=== PATIENT | male | born 1980 | race African-American/Black ===

== ENCOUNTER 2016-10-23 16:17 | Emergency (ER) | payer OTHER ==
[~2016-10-23] VITALS: Ht 170.2 cm; Wt 99.0 kg
[~2016-10-23 16:17] MED LIST: CLIN150 PO; Z.0.NO CURRENT MEDS
[2016-10-23 16:18] VITALS: BP 142/73; PULSE 78; RESP 12; TEMP 98.1; O2SAT 98
[2016-10-23] MEDS ORDERED: LEVEMIR SQ (16:31)
[2016-10-23] MEDS ORDERED: NOVOLOGP2 SQ (16:31)
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
--- NOTE | 2016-10-23 17:29 | RADRPT ---
EXAM DATE/TIME: 10/23/2016 16:56 [facility] COMPARISON: No previous studies available for comparison. INDICATIONS : Pain at 1st digit post injury. MEDICAL HISTORY : None. SURGICAL HISTORY : None. ENCOUNTER: Initial ACUITY: 1 day PAIN SCORE: 4/10 LOCATION: Right 1st digit FINDINGS: Three view examination of the right hand demonstrates no soft tissue swelling, dislocation, or fractu re. The carpal bones appear intact. The interphalangeal and metacarpophalangeal joints are intact. Bony mineralization is normal. CONCLUSION: Unremarkable examination of the right hand. Alyssia Conde MD on October 23, 2016 at 17:27 Board Certified Radiologist. This report was verified electronically.
== END 2016-10-23 17:47 | disposition home or self-care (01) ==
LOC: NETRI 16:17
DX: S60.221A Contusion of right hand, initial encounter (principal); E11.9 Type 2 diabetes mellitus without complications; Z79.4 Long term (current) use of insulin; V86.59XA Driver of other special all-terrain or other off-road motor vehicle injured in nontraffic accident, initial encounter; Y93.89 Activity, other specified; Y92.9 Unspecified place or not applicable; Y99.0 Civilian activity done for income or pay
CPT/HCPCS: 73130; 99283

== ENCOUNTER 2016-11-05 21:57 | Emergency (ER) | payer OTHER ==
[~2016-11-05] VITALS: Ht 167.6 cm; Wt 100.0 kg
[~2016-11-05 21:57] MED LIST changes: -CLIN150 PO; +LEVEMIR SQ; +NOVOLOGP2 SQ; -Z.0.NO CURRENT MEDS
[2016-11-05 21:58] VITALS: BP 150/94; PULSE 71; RESP 15; TEMP 97.6; O2SAT 97
[2016-11-05] MEDS ORDERED: TETANUS/DIPHTHERIA TOXOID ADULT 0.5 ML VIAL IM ONE (23:45)
[2016-11-05] MEDS ORDERED: IBUPROFEN 600 MG TAB PO ONE (23:45)
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
--- NOTE | 2016-11-06 00:02 | RADRPT ---
EXAM DATE/TIME: 11/05/2016 23:55 [facility] COMPARISON: No previous studies available for comparison. INDICATIONS : Back pain from a fall. MEDICAL HISTORY : None. SURGICAL HISTORY : None. ENCOUNTER: Initial ACUITY: 1 day PAIN SCORE: 3/10 LOCATION: Bilateral low back FINDINGS: Normal alignment. Vertebral body heights are preserved in the lumbar spine there is slight wedging of T11 and T12, age indeterminate. Bone density is normal. CONCLUSION: Age indeterminate slight wedge deformities at T11 and T12 vertebral bodies. Blake Choudhury MD on November 06, 2016 at 0:00 Board Certified Radiologist. This report was verified electronically.
[2016-11-06] MEDS ORDERED: IBUP-232 PO (01:03)
== END 2016-11-06 01:15 | disposition home or self-care (01) ==
LOC: NEPB 21:57
DX: M54.9 Dorsalgia, unspecified (principal); R93.7 Abnormal findings on diagnostic imaging of other parts of musculoskeletal system; E11.9 Type 2 diabetes mellitus without complications; Z23 Encounter for immunization; Z79.4 Long term (current) use of insulin; W05.2XXA Fall from non-moving motorized mobility scooter, initial encounter; Y99.0 Civilian activity done for income or pay
CPT/HCPCS: 72100; 90471; 90714